=== PATIENT | male | born 1955 | race Caucasian/White ===

== ENCOUNTER → 2018-03-26 | Outpatient (CLI) | payer OTHER ==
[~2018-03-26] VITALS: Ht 182.9 cm; Wt 119.3 kg
[~2018-03-26] MED LIST: ALLERGY RELIEF180 MG PO; ALLOPURINOL 30300 M1 PO; CALCITRIOL0.25 MCG PO; CARDURA8 MG PO; CARVEDILOL25 MG PO; COLACE 100 MG100 MG PO; CRESTOR20 MG PO; GABAPENTIN 100100 MG PO; HYDRALAZINE HC100 MG PO; LASIX 40 MG TAB40 M2 PO; MIRALAX17 G1 PO; NEORAL25 MG PO; NORCO 5-325 TA1 EACH PO; PERCOCET 10-321 EACH PO; PREDNISONE 5 MG5 M1 PO; PROTONIX40 M1 PO; RESTORIL30 MG PO; SENNA8.6 MG PO; VENLAFAXINE HCL75 M1 PO; XANAX 0.25 MG0.25 MG PO
--- NOTE | ~2018-03-26 | HPC ---
[facility] [place] [address] PAIN MANAGEMENT CONSULTATION Name: STEVE LOVE Room #: REG [facility].#: [id number] Admission: 03/26/18 Attend Phys: Colt Chery DO Discharge: Date of : 53 Report #: [id number] THIS REPORT FOR: //name// CC: BE Chery DATE OF SERVICE: 03/26/2018 REFERRING PHYSICIAN: Dr. Gerry Francis. CHIEF COMPLAINT: Chronic low back pain. HISTORY OF PRESENT ILLNESS: As you know, the patient is a morbidly obese 62-year-old male who has longstanding history of low back pain began in 1994. He denies specific injury or trauma that may have led to symptom development. He has been precluded from taking nonsteroidal anti-inflammatories secondary to his chronic kidney disease for which he was following his hematology supervisor, Dr. Robb Millard. Apparently, Dr. Robb Millard was providing not only treatment for the patient's nephrology issues, but also from his internal med issues and he was started on opioid medications through Dr. Millard's office at 10 mg Percocet 4 times a day. The patient states he has been on this medication for a very long period of time. He sought evaluation and treatment with physical therapy and acupuncture, but these have not been very effective at treating his symptoms and provided only transient improvement, but Dr. Millard continued the patient on oxycodone 10/325 for a total of almost 15 years. The patient indicates that his physician, Dr. Millard has retired from active practice and has referred the patient off to Dr. Cunningham for internal medicine treatment. The patient was seen by Dr. Cunningham and advised he needed to seek evaluation through pain management clinic to confirm appropriate use of medications and to confirm that the dosing was an appropriate dosing for an individual with chronic axial back pain. The patient comes today per Dr. Cunningham's request to determine if his medication treatments are appropriate. He indicates today pain is constant, describes the pain as sharp and stabbing, places current pain score 10/10, daily average at 10/10, worst pain has been is 10/10. This is despite the fact the patient is taking a fairly excessive doses of opioid medication. He states the pain is exacerbated with lifting, bending, improves with sitting down and relaxation. He has been referred to discuss the appropriateness of opioid medication treatment. PAST MEDICAL HISTORY: 1. Hypertension. 2. Cardiovascular disease requiring cardiac transplant. 3. Chronic kidney disease. 4. [place] [address] PAIN MANAGEMENT CONSULTATION Name: STEVE LOVE Room #: REG CLI [facility]#: [id number] Admission: 03/26/18 Attend Phys: Colt Chery DO Discharge: Date of : 53 Report #: [id number] 5. Chronic low back pain. 6. Gout. PAST SURGICAL HISTORY: 1. Cholecystectomy. 2. Cardiac transplant. 3. Colon resection. 4. Right nephrectomy. 5. Possible left kidney cancer. SOCIAL HISTORY: The patient is a nonsmoker. He denies IV or illicit drug use. Denies any chronic alcohol use. 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 He is receiving disability income. He is not in litigation in regards to pain. He is unaccompanied today. REVIEW OF SYSTEMS: Positive for weight gain, fatigue and weakness, wearing corrective eyewear, hearing loss with tinnitus, significant heart trouble, requiring cardiac transplant, loss of appetite, frequent diarrhea, nocturia, kidney stones, sexual difficulty, lightheadedness and dizziness, rash and itching, weakness, depression, insomnia, heat and cold intolerance, bleeding and bruising tendencies, anemia, chronic kidney disease, dyslipidemia. All other review of systems negative per 12-point review of systems other than those listed in history of present illness. PAIN IMPACT SCORE: 39/70 indicating moderate interference of daily activities secondary to pain. ALLERGIES: NORVASC. CURRENT MEDICATIONS: Alprazolam 0.25 mg 3 times a day, venlafaxine 75 mg twice a day, temazepam 30 mg p.o. at bedtime, Senokot 1 tab per day, lovastatin 20 mg per day, pantoprazole 40 mg per day, prednisone 5 mg per day, MiraLax 17 grams per day, Percocet 10/325 four times a day, cyclosporine 25 mg twice a day, furosemide 40 mg once a day, hydralazine 100 mg 3 times a day, gabapentin 100 mg 3 times a day, fexofenadine 180 mg once a day, Cardura 8 mg once a day, Colace 100 mg once a day, carvedilol 25 mg twice a day, calcitriol 0.25 mcg 3 times a day, and allopurinol 300 mg once a day. IMAGING: No new imaging available. PQRS: The patient has known osteoarthritis. No rheumatoid arthritis. Pain intensity 10/10. Fall risk is none. He has not had a fall in the last 3 months. He is not on blood thinners. He is treated for hypertension. He is on opioids and has been for greater than 6 weeks. His risk assessment is low. Functional assessment 39/70, moderate interference. [facility] [address] [place] [address] PAIN MANAGEMENT CONSULTATION Name: STEVE LOVE Room #: REG [facility]#: [id number] Admission: 03/26/18 Attend Phys: Colt Chery DO Discharge: Date of : 53 Report #: [id number] PHYSICAL EXAMINATION: VITAL SIGNS: Blood pressure 129/86, pulse 75, respiratory rate 18 and unlabored, the patient is 100% on room air, height 6 feet tall, weight 263 pounds, and BMI calculated 35.7. GENERAL: Well-developed, well-nourished, well-hydrated, exogenously obese 62-year-old male, appears stated age, placing current pain score 10/10. HEENT: Normocephalic, atraumatic. Pupils are equal, round, and reactive to light. Extraocular muscles are intact. Sclerae are nonicteric without injection. NEUROLOGIC: Cranial nerves 2-12 are grossly intact. The patient deemed a good historian. LUNGS: Clear, no wheeze, rhonchi or rales. CARDIOVASCULAR: Regular. No appreciable gallop, no rub. Well-healed surgical scar is noted over the anterior chest. There is lower extremity edema noted, 2+ and pitting. ABDOMEN: Soft, obese, nontender. MUSCULOSKELETAL: Palpatory tenderness over the paraspinal musculature of lower lumbar spine, no spinous process tenderness. Seated straight leg raising negative. Supine straight leg raising is negative. Alejandro's test negative. Modified Gaenslen's positive for axial low back pain. Ankle clonus negative. Babinski is negative. He appears to be intact to light touch from L1 through S2 dermatomes. No focal deficits. Lumbar provocation testing including extension, rotation, and lateral flexion all intensify axial back pain, no radiation of symptoms. ASSESSMENT: 1. Lumbosacral spondylosis without radiculopathy. 2. Obesity contributing to #1. 3. Facet arthropathy of the lower lumbar spine. 4. Opioid dependency. 5. Chronic intractable pain. PLAN: 1. The patient has been referred to our service to discuss options for treatment and determine if the use of Percocet 10/325 four times a day is an appropriate treatment. At present, I do not have enough information in regards to this patient's issues to be able to determine this dosing of medication. This medication was started by another physician and has been continued for over 15 years of time. I do not have any imaging to confirm whether or not the patient actually needs to be on this medication. I would recommend a workup in this patient's case prior to providing a full assessment of the patient's needs and possible treatment options. The patient and I discussed that treatment options in generalities today, which would include the following. 2. We discussed physical therapy, stretching exercise, core strengthening and a concerted effort at weight loss. This will be that the cornerstone of treatment. The patient will need to participate actively in exercise programs [address] [address] PAIN MANAGEMENT CONSULTATION Name: STEVE LOVE Room #: REG [facility]#: [id number] Admission: 03/26/18 Attend Phys: Colt Chery DO Discharge: Date of : 53 Report #: [id number] and diet programs as part of his pain management routine. We discussed the possibility of adjusting medications to lower doses to comply with CDC's guidelines, though at this point, I would recommend he remain at the dosing he is currently at until workup is complete. We discussed interventional treatment such as intra-articular facet injections, medial branch nerve blocks, radiofrequency lesioning. We discussed the possibility of surgical options as well. After this long discussion of potential treatment options, we chose to begin with imaging and we have indicated we would provide his opioid medication for a short period of time as we determine treatment options once this is completed and we have stabilized on dose, we will be returning his care to his PCP for continuation of appropriate therapy. The patient states he is understanding and is amenable to the plan. 3. The patient will be sent for x-ray imaging of the lumbar spine. I have sent him for AP and lateral imaging. The patient will undergo this imaging today. We will review the findings once they are available. Based on the findings, we will discuss further treatment options. 4. I have provided the patient with a 1 month prescription of oxycodone 10 mg 4 times a day. He is not to take more than 4 tablets in given 24-hour period. There will be no early refills, no misuse of his medication, any lost or stolen prescriptions will require the patient to seek police reports before replacements would be offered. We discussed this with the patient today. We will place the patient under opioid contract with [facility] while we continue his workup, once we have determined the appropriate medications and stabilized on dose, we will then release him from his opioid contract to return to the referring physician for continuation of therapy. 5. We will see the patient back in followup visit in approximately 2 weeks. At that time, we will have x-ray imaging available. We will discuss the efficacy of the medications and discuss the appropriate treatment options that may not involve long-term opioid therapy. We will see him back in 2 weeks to discuss this further. 6. We wish to thank the referring team for the opportunity to see this patient in consultation. We will keep you apprised of the options for treatment we deem appropriate and medications treatments that may be more effective for treatment. We are somewhat limited in what medications he can take due to his chronic kidney disease and his cardiac issues, we will adjust medications appropriately. Once stable, we will be returning his care to your capable hands for fulfillment of the treatment options. Again, we wish to thank you for the opportunity to see the patient in consultation. <ELECTRONICALLY SIGNED> By: Colt Chery DO 04/02/18 0811 [id number] [id number] Colt Chery DO /nt
[2018-03-26 13:34] VITALS: BP 129/86
== END ==
LOC: PAIN 06:20
DX: M47.817 Spondylosis without myelopathy or radiculopathy, lumbosacral region (principal); M48.061 Spinal stenosis, lumbar region without neurogenic claudication; M12.88 Other specific arthropathies, not elsewhere classified, other specified site; G89.4 Chronic pain syndrome; E66.9 Obesity, unspecified; F11.20 Opioid dependence, uncomplicated

== ENCOUNTER → 2018-04-23 | Outpatient (CLI) | payer OTHER ==
[~2018-04-23] VITALS: Ht 182.9 cm; Wt 121.9 kg
--- NOTE | ~2018-04-23 | HPC ---
[facility] [place] [address] PAIN MANAGEMENT CONSULTATION Name: STEVE LOVE Room #: [facility] [id number] Admission: 04/23/18 Attend Phys: Colt Chery DO Discharge: Date of : 53 Report #: [id number] THIS REPORT FOR: //name// CC: BE Francis Physician staff DATE OF SERVICE: 04/23/2018 CHIEF COMPLAINT: Chronic low back pain. HISTORY OF PRESENT ILLNESS: As you know, the patient is a morbidly obese 62-year-old male with longstanding history of low back pain began in 1994. He denies injury or trauma that led to symptom development. The patient has been precluded from taking nonsteroidal anti-inflammatories secondary to chronic kidney disease for which he follows with Nephrology. The patient returns today in followup visit where we have continued his oxycodone 10/325 providing no more than 4 tabs a day. He indicates pain intensity of 5-6/10 with medications. He reports no side effects to the therapy. He is aware that we are only providing temporary medication management, but have begun a workup of his low back pain to determine the potential sources as we typically provide interventional treatments as are mainstay of treatment option. He returns to discuss the findings of the x-ray imaging I obtained at last visit and also to obtain refill of medication at the 4 a day dosing of oxycodone. ALLERGIES: NORVASC. CURRENT MEDICATIONS: Alprazolam, venlafaxine, temazepam, Senokot, lovastatin, pantoprazole, prednisone, MiraLax, Percocet, cyclosporine, furosemide, hydralazine, gabapentin, fexofenadine, Cardura, Colace, carvedilol, calcitriol and allopurinol. SOCIAL HISTORY: The patient states he is a nonsmoker. Denies IV or illicit drug use. Denies any chronic alcohol use. 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 He is unaccompanied today. IMAGING: X-ray lumbar of spine obtained on 03/26/2018 shows five lumbar vertebrae, moderate loss of disk height at L5-S1, partial sacralization of L5. Mild loss of disk space at L4-L5. Remaining disk spaces are normal. PHYSICAL EXAMINATION: VITAL SIGNS: Blood pressure 143/93, pulse 74, respiratory rate 20 and unlabored. The patient is 97% on room air. Height 6 feet tall, weight 268.8 pounds and BMI calculated 36.4[place] [address] PAIN MANAGEMENT CONSULTATION Name: STEVE LOVE [facility] [id number] Admission: 04/23/18 Attend Phys: Colt Chery DO Discharge: Date of : 53 Report #: [id number] GENERAL: Well-developed, well-nourished, well-hydrated, morbidly obese 62-year-old male who appears older than stated age. He is placing pain score today at 5-6/10. HEENT: Normocephalic and atraumatic. Pupils are equal, round and reactive to light. Extraocular muscles are intact. EXTREMITIES: Show no clubbing, no cyanosis and no edema. MUSCULOSKELETAL: The patient does have some palpatory tenderness over the paraspinal musculature of the lower lumbar spine. No spinous process tenderness. Seated straight leg raising is negative. Supine straight leg raising is negative. Alejandro's test is negative. There is some positive pain provocation with extension, lateral flexion and rotation of the lumbar spine. ASSESSMENT: 1. Lumbosacral spondylosis without myelopathy. 2. Morbid obesity contributing to #1. 3. Facet arthropathy of the lumbar spine. 4. Opioid dependency. 5. Chronic intractable pain. PLAN: 1. The patient returns today in followup visit where we have had a discussion about the findings of the x-ray imaging, I am pleased to advise the patient at this time findings on his x-ray appear fairly normal for his age and body habitus. There is only moderate loss of height at the L5-S1 level from a disk space and mild changes at the 4-5 level, which would indicate that the patient will not necessarily need opioid therapy long-term. We have discussed this with the patient and I believe interventional treatments along with concerted effort at weight loss and physical therapy would be the most appropriate treatment options. I have advised the patient of such today. Opioid medications will be slowly weaned over the next couple of months coming off opioids entirely as I do not feel they are appropriate given his lack of major pathology in the lumbar spine. I am pleasantly surprised by the findings and advised the patient of such today. 2. The patient and I discussed continuation of opioid medications at current dosing for the next month. This will allow the time for the patient to begin a concerted effort at weight loss. He has been slowly losing weight and we advised him to monitor his basic metabolic rate and maintain a caloric intake 200-300 calories below the BMR. I showed the patient a website where he can calculate his basic metabolic rate without difficulty. He will remain at a level 200-300 calories below this, which will provide a reduction in caloric intake leading to weight loss. 3. The patient and I discussed the possibility of interventional treatments. We are discussing intra-articular facet injections, medial branch nerve blocks and radiofrequency lesioning. These will be the cornerstone of treatment as the patient cannot undergo treatment with nonsteroidal anti-inflammatories, the gold standard medication for facet arthropathy pain for which the patient is [facility] [address] [place] [address] PAIN MANAGEMENT CONSULTATION Name: STEVE LOVE [facility] [id number] Admission: 04/23/18 Attend Phys: Colt Chery DO Discharge: Date of : 53 Report #: [id number] experiencing. Chronic opioid therapy was started by a head batcher with good intentions, but with typical outcome of escalating doses with less efficacy. This is noted again with the patient's pain score rated at 5-6/10 despite the fact that he is on 40 mg of oxycodone a day. I would recommend that we discontinue this activity as quickly as possible and adjust treatment for more appropriate and predictable outcome. 4. The patient returns in 1 month. We will begin weaning his opioids at that time. Certainly, if he wishes to remain on opioids he can seek another pain clinic or return to his PCP for this therapy. We are suggesting a more appropriate and predictable treatment course. 5. The patient was provided prescription of oxycodone 10 mg dose 1 tab p.o. q.i.d., #120, releases of today. We will see him back in 1 month for adjustments for lower dosing. At that time, we will also discuss the interventional treatments suggested above. <ELECTRONICALLY SIGNED> By: Colt Chery DO 04/24/18 0804 [id number] Colt Chery DO /nt
[2018-04-23 12:36] VITALS: BP 143/93
== END ==
LOC: PAIN 06:38
DX: M47.817 Spondylosis without myelopathy or radiculopathy, lumbosacral region (principal); M12.88 Other specific arthropathies, not elsewhere classified, other specified site; G89.4 Chronic pain syndrome; E66.01 Morbid (severe) obesity due to excess calories; F11.20 Opioid dependence, uncomplicated

== ENCOUNTER → 2018-05-21 | Outpatient (CLI) | payer OTHER ==
[~2018-05-21] VITALS: Ht 182.9 cm; Wt 121.6 kg
[~2018-05-21] MED LIST changes: +DOXAZOSIN MESYLA8 MG PO; +LISINOPRIL10 MG PO; +POTASSIUM CITR10 ME1 PO
--- NOTE | ~2018-05-21 | HPC ---
[facility] [place] [address] PAIN MANAGEMENT CONSULTATION Name: STEVE LOVE Room #: REG [facility].#: [id number] Admission: 05/21/18 Attend Phys: Colt Chery DO Discharge: Date of : 53 Report #: [id number] THIS REPORT FOR: //name// CC: BE Francis Physician staff DATE OF SERVICE: 05/21/2018 CHIEF COMPLAINT: Chronic low back pain. HISTORY OF PRESENT ILLNESS: As you know, the patient is a morbidly obese 62-year-old male who has a longstanding history of low back pain, began in 1994. The patient denies injury or trauma that may have led to symptom development. 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 He was referred to our clinic to determine appropriate medication therapies. We have stabilized the patient on a medication in the form of Percocet 10/325, no more than 4 a day. This has been working well for pain control. We have completed the stabilization of the patient on his medication. The patient indicates pain today at level of 8/10; despite this elevated pain score, he is providing 50-60% improvement reporting when discussing his ongoing pain medication. He returns today for refill of medications. ALLERGIES: NORVASC. CURRENT MEDICATIONS: Alprazolam, venlafaxine, temazepam, Senokot, lovastatin, pantoprazole, prednisone, MiraLax, Percocet, cyclobenzaprine, furosemide, hydralazine, gabapentin, fexofenadine, Cardura, Colace, carvedilol, cholecalciferol, calcitriol and allopurinol. SOCIAL HISTORY: The patient is a nonsmoker. Denies IV or illicit drug use. Denies any chronic alcohol use. 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 He is unaccompanied today. IMAGING: There is no new imaging available. PHYSICAL EXAMINATION: VITAL SIGNS: Blood pressure 121/88, pulse 78, respiratory rate 16, unlabored. The patient is 98% on room air, height 6 feet tall, weight 268 pounds, BMI calculated 36.3. GENERAL: Well-developed, well-nourished, well-hydrated, morbidly obese 62-year-old male who appears older than stated age, placing current pain score at 8/10. HEENT: Normocephalic, atraumatic. Pupils equal, round, reactive to light. [facility] [address] [place] [address] PAIN MANAGEMENT CONSULTATION Name: STEVE LOVE Room #: REG [facility]#: [id number] Admission: 05/21/18 Attend Phys: Colt Chery DO Discharge: Date of : 53 Report #: [id number] Extraocular muscles are intact. EXTREMITIES: Show no clubbing, no cyanosis, no edema. MUSCULOSKELETAL: There is palpatory tenderness noted over the paraspinal musculature of lower lumbar spine. No spinous process tenderness. Seated straight leg raising negative. Supine straight leg raising negative. HARMAN test is negative. Modified Gaenslen's positive for axial back pain. Ankle clonus negative. Babinski is negative. ASSESSMENT: 1. Lumbosacral spondylosis without myelopathy. 2. Morbid obesity contributing to #1. 3. Facet arthropathy of the lumbar spine. 4. Opioid dependency. 5. Chronic intractable pain. PLAN: 1. The patient has returned today in followup visit where we have discussed at length the treatment options available for axial back pain due to facet arthropathy. We have suggested to the patient options that do not require continuation of opioid medications. We have discussed intra-articular facet injections, medial branch nerve blocks, radiofrequency lesioning and treatment options for the lumbar spine. At present, the patient feels medications are working well. The patient has been on these medications for a very long period of time and I am confident that these medications have little or no benefit given the longevity the patient has been on the therapy. 2. I have provided the patient with a prescription of Percocet 10/325, no more than 4 a day; I have given him #120. He is to take the medication as directed. No increase in therapy. Prescription was provided for 1 month only. 3. We will see the patient back in followup visit in 1 month. At that time, if he is stabilized on his medication, we can see him every 2 months as you will be provided a medication total of 60 morphine equivalents per day, which is at the higher end of the scale of appropriate medications for chronic pain. We will ultimately need to adjust these to a lower dose but given his 60 milligram morphine equivalency, he will have to be seen on a monthly or every other month basis to continue this therapy with our clinic. He can certainly return to his PCP to continue the therapy as he is stabilized on those and he is not having any issues with this treatment. By: [id number] Colt Chery DO /nt
[2018-05-21 10:20] VITALS: BP 121/88
== END ==
LOC: PAIN 06:38
DX: M47.817 Spondylosis without myelopathy or radiculopathy, lumbosacral region (principal); G89.4 Chronic pain syndrome; M12.88 Other specific arthropathies, not elsewhere classified, other specified site; E66.01 Morbid (severe) obesity due to excess calories; F11.20 Opioid dependence, uncomplicated

== ENCOUNTER → 2018-08-21 | Outpatient (CLI) | payer OTHER ==
[~2018-08-21] VITALS: Ht 182.9 cm; Wt 120.9 kg
[~2018-08-21] MED LIST changes: +IMDUR 30 MG TAB30 M1 PO
--- NOTE | ~2018-08-21 | HPC ---
[facility] [address] [place] [address] PAIN MANAGEMENT CONSULTATION Name: STEVE LOVE [facility] [id number] Admission: 08/21/18 Attend Phys: Colt Chery DO Discharge: Date of : 53 Report #: [id number] THIS REPORT FOR: //name// CC: BE Chery Physician staff DATE OF SERVICE: 08/21/2018 CHIEF COMPLAINT: Chronic low back pain. HISTORY OF PRESENT ILLNESS: As you know, the patient is a morbidly obese 63-year-old male with longstanding history of low back pain, which began in 1987. He denies injury or trauma that may have led to symptom development. He is a long-term opioid medication management patient who was initiated on this therapy by his cooler tender, Dr. Robb Milladr years ago and has continued to use this medication. He was subsequently referred to our service as the patient's cooler tender retired and the patient's primary care physician was unwilling to continue opioid medication management for chronic axial back pain. The patient states he was doing well with medication, was having no side effects and was able to participate in his daily activities without significant pain interference. We continued the patient on his dosing with the caveat that ultimately we will be weaning off these medications given the new political environment in regards to opioid therapy. He returns today in followup visit requesting refill on medications. He is denying side effects. He states he has been quite busy of late as his son is soon to be and there is a significant amount of planning and organization taking place at the patient's home. He states the stress has increased his pain, but he feels he is doing well with medication management at this time. He returns for refill of therapy. ALLERGIES: NORVASC. CURRENT MEDICATIONS: Alprazolam, venlafaxine, temazepam, Senokot, lovastatin, pantoprazole, prednisone, MiraLax, Percocet, cyclobenzaprine, furosemide, hydralazine, gabapentin, fexofenadine, Cardura, Colace, carvedilol, cholecalciferol, calcitriol, and allopurinol. SOCIAL HISTORY: The patient is a nonsmoker. Denies IV or illicit drug use. Denies any chronic alcohol use. 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 He is unaccompanied today. IMAGING: There is no new imaging available. PHYSICAL EXAMINATION: VITAL SIGNS: Blood pressure 153/99, pulse is 66, respiratory rate 20 and [facility] [address] [place] [address] PAIN MANAGEMENT CONSULTATION Name: STEVE LOVE Room #: REG [facility]#: [id number] Admission: 08/21/18 Attend Phys: Colt Chery DO Discharge: Date of : 53 Report #: [id number] unlabored. The patient is 98% on room air, height 6 feet tall, weight 266 pounds, BMI calculated at 36.1. GENERAL: Well-developed, well-nourished, well-hydrated exogenously obese 63-year-old male appearing stated age. He is placing pain score around 8/10. HEENT: Normocephalic, atraumatic. Pupils equal, round, reactive to light. Extraocular muscles are intact. EXTREMITIES: Show no clubbing, no cyanosis, no edema. MUSCULOSKELETAL: The patient has a palpatory tenderness over the paraspinal musculature of lower lumbar spine, no spinous process tenderness. Seated straight leg raising negative. Supine straight leg raising negative. Alejandro's test negative. Modified Gaenslen's positive for axial low back pain. Muscle bulk and tone of the musculature of the lower extremities is symmetrical, deconditioning noted. ASSESSMENT: 1. Lumbosacral spondylosis without radiculopathy. 2. Morbid obesity. 3. Facet arthropathy of the lumbar spine. 4. Opioid dependency. 5. Complicated medication therapy. 6. Chronic intractable pain. PLAN: 1. The patient returns today in followup visit. We had a very long discussion today about the use of medication management for long-term back pain issues. I have advised the patient that opioid medications soon will be discontinued. Recent information indicates that opiate coverage will only be offered by third green party payers and ultimately by Medicare for those individual suffering from terminal disease, metastatic cancer, acute sickle cell anemia pain and post-surgical pain for only 7-10 days. Otherwise, opioid medications will ultimately be discontinued. The patient will need to be prepared for changes in his opioid therapy as the guidelines begin to change. It is projected that opioid medication management will be discontinued in approximately mid 2020 based on current projections. The patient and I had a very long discussion about this today. He states he understands. He is concerned about how he will handle his pain from that point forward. We discussed the following. 2. I have discussed with the patient his need to begin losing weight and beginning strengthening and core exercise program. This will be the way to treat his ongoing axial back pain as his symptoms are related to facet arthropathy and not to any specific neuropathic component such as lumbar disk herniation or central canal stenosis. The patient is overweight and needs to begin a much more healthy lifestyle to address not only his back pain issues, but some of his concomitant illnesses. The patient has capabilities to begin the exercise program, he just has not been willing to participate. This would be a way to treat his symptoms. Other options could include possible surgical [facility] [address] [place] [address] PAIN MANAGEMENT CONSULTATION Name: STEVE LOVE Room #: REG [facility].#: [id number] Admission: 08/21/18 Attend Phys: Colt Chery DO Discharge: Date of : 53 Report #: [id number] options to stabilize the back, decreasing mobility across the area though this would be an aggressive procedure and may leave the patient with decreased mobility. Other options would include possibility of radiofrequency lesioning of the lumbar spine. Anti-inflammatory medications, the goal standard for treatment would not be recommended in this patient given his chronic kidney disease and his heart transplant leading to risk on both levels. The patient will consider these options. 3. We have reviewed the patient's recent drug screen. It shows positive for appropriate medications. There is no aberrancy noted on the drug screen. We have also taken the liberty of reviewing drug monitoring program such as K-TRACS and MO-TRACS. There are no apparent entries in these tracking programs. 4. The patient was provided a prescription of Percocet 10/325 one tab p.o. q. 6 hours p.r.n. for pain, I have given the patient #120, this equates to 60 morphine equivalents a day, requiring the patient to be seen every other month. He was given a prescription of 120 today and release in 4 weeks, 2 months' worth of medication. The patient was advised to utilize the medication only as necessary. He is not to rely on the medication prophylactically. 5. We reviewed the fact that opiate medications are being used to provide analgesia adequate to support activities of daily living, not attempting to achieve a specific pain score on the 0-10 Visual Analog Scale. The current opiate medications are providing sufficient analgesia to allow the patient to participate in activities of daily living. The patient is not exhibiting any aberrant behavior suggestive of drug diversion. The patient is not having any adverse reactions to medications. The patient is not suffering from daytime somnolence or mental acuity changes. The patient is managing opiate-induced constipation with appropriate lwpo-fex-vpkfxlm agents and dietary considerations. The patient was counseled on concern for caution with operating a motor vehicle while using opiate medications. A physical exam was performed and the patient's functional status was evaluated. All patients with back pain were advised against the bed rest greater than 4 days and were advised to return to normal activities. Pain score assessment was noted and the treatment plan was reviewed with the patient. All current medications, both prescribed and OTC were reviewed and reconciled on the electronic medical record. Tobacco screening was accomplished and smoking cessation was advised when indicated. BMI was noted and diet/exercise modification was recommended for all patients following outside normal parameters. I reviewed with the patient today their responsibilities to safeguard prescription medications, reviewed their responsibility to utilize medications only as prescribed by the physician. They are to seek and receive pain medications only from 1 physician group ( [facility]). They are to use [address] [address] PAIN MANAGEMENT CONSULTATION Name: STEVE LOVE Room #: REG [facility]#: [id number] Admission: 08/21/18 Attend Phys: Colt Chery DO Discharge: Date of : 53 Report #: [id number] pharmacy and keep the clinic informed if they change pharmacies. Their responsibilities include making followup visits in a timely fashion and to avoid abrupt discontinuation of medication usage. Their responsibilities further include bringing their medications (bottles from the pharmacy with residual pills) to the visit for possible confirmation of pill counts and the patient understands it is their responsibility to submit to random drug screens to ensure both that the medications prescribed are present, and that no other controlled substances are present. All prescriptions provided today were generated electronically. 6. The patient will return to our clinic in 2 months for medication therapy and discuss alternative treatment options if at all possible. <ELECTRONICALLY SIGNED> By: Colt Chery DO 08/27/18 0727 [id number] Colt Chery DO /nt
[2018-08-21 10:41] VITALS: BP 153/99
== END ==
LOC: PAIN 06:54
DX: M47.897 Other spondylosis, lumbosacral region (principal); E66.01 Morbid (severe) obesity due to excess calories; F11.20 Opioid dependence, uncomplicated; G89.4 Chronic pain syndrome; M12.88 Other specific arthropathies, not elsewhere classified, other specified site; Z79.899 Other long term (current) drug therapy

== ENCOUNTER → 2018-10-23 | Outpatient (CLI) | payer OTHER ==
[~2018-10-23] VITALS: Ht 182.9 cm; Wt 121.7 kg
--- NOTE | ~2018-10-23 | HPC ---
[facility] [place] [address] PAIN MANAGEMENT CONSULTATION Name: STEVE LOVE Room #: REG [facility].#: [id number] Admission: 10/23/18 Attend Phys: Colt Chery DO Discharge: Date of : 53 Report #: [id number] THIS REPORT FOR: //name// CC: BE Chery Physician staff DATE OF SERVICE: 10/23/2018 CHIEF COMPLAINT: Chronic low back pain. HISTORY OF PRESENT ILLNESS: As you know, the patient is a 63-year-old morbidly obese male with longstanding history of chronic low back pain began in 1994. He denies specific injury or trauma that may have led to symptom development. 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 He was subsequently referred to our clinic to take over opioid medication management for the short term until which time we can transition to other medication therapies. He returns today in followup visit for refill of current medications. ALLERGIES: NORVASC. CURRENT MEDICATIONS: Alprazolam, venlafaxine, temazepam, Senokot, lovastatin, pantoprazole, prednisone, MiraLax, Percocet, cyclobenzaprine, furosemide, hydralazine, gabapentin, fexofenadine, Cardura, Colace, carvedilol, cholecalciferol, calcitriol and allopurinol. SOCIAL HISTORY: The patient is a nonsmoker. Denies IV or illicit drug use. Denies any chronic alcohol use. 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 He is retired. He is unaccompanied today. IMAGING DATA: No new imaging available. PHYSICAL EXAMINATION: VITAL SIGNS: Blood pressure 130/87, pulse 79 and respiratory rate 18 and unlabored. The patient is 96% on room air, height 6 feet tall, weight 268.2 pounds and BMI calculated 36.4. GENERAL: Well-developed, well-nourished and well-hydrated 63-year-old male appearing stated age, placing current pain score 5/10. HEENT: Normocephalic and atraumatic. Pupils equal, round and reactive to light. Extraocular muscles are intact. EXTREMITIES: Show no clubbing, no cyanosis and no edema. MUSCULOSKELETAL: The patient has palpatory tenderness again noted over the paraspinal musculature, lower lumbar spine and no spinous process tenderness. Seated straight leg raising negative. Supine straight leg raising negative. Alejandro's test negative. Modified Gaenslen's positive for some axial low back [address] [address] PAIN MANAGEMENT CONSULTATION Name: STEVE LOVE Room #: REG [facility]#: [id number] Admission: 10/23/18 Attend Phys: Colt Chery DO Discharge: Date of : 53 Report #: [id number] pain. Muscle bulk and tone symmetrical in comparing left lower extremity to right. Deconditioning noted, slight forward flexion of the lumbar spine in stance. ASSESSMENT: 1. Lumbosacral spondylosis without radiculopathy. 2. Morbid obesity. 3. Facet arthropathy of the lumbar spine. 4. Opioid dependency. 5. Complicated medication management. 6. Chronic intractable pain. PLAN: 1. The patient returns today in followup visit for continuation of medication therapy. He feels medications are working beneficially for pain control. He denies any side effects to the Percocet therapy including sleepiness, disorientation, mental slowing. He requests refill of the medications be provided today for the next 3 months. 2. We reviewed the fact that opiate medications are being used to provide analgesia adequate to support activities of daily living, not attempting to achieve a specific pain score on the 0-10 Visual Analog Scale. The current opiate medications are providing sufficient analgesia to allow the patient to participate in activities of daily living. The patient is not exhibiting any aberrant behavior suggestive of drug diversion. The patient is not having any adverse reactions to medications. The patient is not suffering from daytime somnolence or mental acuity changes. The patient is managing opiate-induced constipation with appropriate zwzt-jct-ofraqgn agents and dietary considerations. The patient was counseled on concern for caution with operating a motor vehicle while using opiate medications. A physical exam was performed and the patient's functional status was evaluated. All patients with back pain were advised against the bed rest greater than 4 days and were advised to return to normal activities. Pain score assessment was noted and the treatment plan was reviewed with the patient. All current medications, both prescribed and OTC were reviewed and reconciled on the electronic medical record. Tobacco screening was accomplished and smoking cessation was advised when indicated. BMI was noted and diet/exercise modification was recommended for all patients following outside normal parameters. I reviewed with the patient today their responsibilities to safeguard prescription medications, reviewed their responsibility to utilize medications only as prescribed by the physician. They are to seek and receive pain medications only from 1 physician group ([facility]). They are to use 1 pharmacy and keep the clinic informed if they change pharmacies. Their responsibilities include making followup visits in a timely fashion and to avoid [address] [address] PAIN MANAGEMENT CONSULTATION Name: STEVE LOVE Room #: REG [facility]#: [id number] Admission: 10/23/18 Attend Phys: Colt Chery DO Discharge: Date of : 53 Report #: [id number] abrupt discontinuation of medication usage. Their responsibilities further include bringing their medications (bottles from the pharmacy with residual pills) to the visit for possible confirmation of pill counts and the patient understands it is their responsibility to submit to random drug screens to ensure both that the medications prescribed are present, and that no other controlled substances are present. All prescriptions provided today were generated electronically. 3. A prescription of Percocet was provided to the patient today, dosing as 10/325 one tab every 6 hours p.r.n. for pain. I have given the patient #120, releases of today and 4 weeks from today, 2 months' worth of medication. 4. The patient returns to our clinic in 2 months for medication therapy and discuss efficacy of continuing this treatment. By: [id number] Colt Chery DO /nt
[2018-10-23 10:42] VITALS: BP 130/87
== END ==
LOC: PAIN 09:34
DX: M54.5 Low back pain (principal); M06.9 Rheumatoid arthritis, unspecified

== ENCOUNTER → 2018-12-24 | Outpatient (CLI) | payer OTHER ==
[~2018-12-24] VITALS: Ht 182.9 cm; Wt 126.0 kg
[2018-12-24 10:31] VITALS: BP 139/101
--- NOTE | 2018-12-24 10:53 | NUR ---
Pain Clinic Assessment: 1. History of Osteoarthritis: Not Applicable History of Rheumatoid Arthritis: Not Applicable 2. Height: 6 ft. 0 in. 182.9 cm. Weight: 277.8 lb. oz. 126.010 kg. Patient's BMI: 37.7 3. Vital Signs: BP: 139/101 Pulse: 80 Resp: 20 Temp: 02 Sat: 98 ECG Mon: 4. Pain Intensity: 6 5. Fall Risk: Dizziness: Y Needs help standing or walking: N Fallen in the last 3 months: N Fall risk comments: 6. Patient on Blood Thinner: None 7. History of Hypertension: Y 8. Opioid Therapy greater than 6 weeks: Y Opiate Contract Signed: 03/26/18 9. Risk Assessment Tool Provided: 1-LOW RISK 10. Functional Assessment Tool: / 11. Recreational Drug Use: Never Drug Type: Tobacco Use: Never Smoker Tobacco Type: Amount or Packs/day: How Many Years: Alcohol Use: No Frequency: Quant:
--- NOTE | 2018-12-25 10:54 | HPC ---
[address] [address] PAIN MANAGEMENT CONSULTATION Name: STEVE LOVE Room #: REG [facility].#: [id number] Admission: 12/24/18 Attend Phys: Colt Chery DO Discharge: Date of : 53 Report #: [id number] THIS REPORT FOR: //name// CC: BE Chery Physician staff DATE OF SERVICE: 12/24/2018 CHIEF COMPLAINT: Chronic low back pain. HISTORY OF PRESENT ILLNESS: As you know, the patient is a morbidly obese 63-year-old male with longstanding history of chronic axial back pain began in 1994. The patient was being treated by his [employer] security with chronic opioids for facet arthropathy of the lumbar spine. The patient's [employer] ultimately discontinued practice and his Nephrology partners did not wish to continue his medications. He was subsequently referred to his PCP to continue the therapy. They in turn referred the patient on to our clinic as they did not feel comfortable writing opioid medications for this patient as well. He was seen in our clinic where we reviewed his entire medical history that he had available with him on 03/26/2018 and reinitiated his opioid therapy for baseline pain control for which he takes Percocet 10/325 four times a day. He is unable to utilize anti-inflammatory medications due to chronic kidney disease as well as cardiac issues related to his cardiac transplant. He was stabilized on this medication by another physician referred to our clinic to continue the therapy. We have agreed to provide the patient with pain medications at current dosing without further escalation. He returns today in followup visit requesting refill of medications. He is placing pain score today at 6/10. ALLERGIES: NORVASC. CURRENT MEDICATIONS: Alprazolam, venlafaxine, temazepam, Senokot, lovastatin, pantoprazole, prednisone, MiraLax, Percocet, cyclobenzaprine, furosemide, hydralazine, gabapentin, fexofenadine, Cardura, Colace, carvedilol, cholecalciferol, calcitriol and allopurinol. SOCIAL HISTORY: The patient is a nonsmoker. He denies IV or illicit drug use. Denies any chronic alcohol use. 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 He is no longer working, not receiving workmen's compensation. He is retired. IMAGING: No new imaging available. PHYSICAL EXAMINATION: VITAL SIGNS: Blood pressure 139/101, pulse 80, respiratory rate 20 and unlabored. The patient is 98% on room air, height 6 feet tall, weight 277.8 [place] [address] PAIN MANAGEMENT CONSULTATION Name: STEVE LOVE Room #: REG [facility].#: [id number] Admission: 12/24/18 Attend Phys: Colt Chery DO Discharge: Date of : 53 Report #: [id number] pounds, BMI calculated 37.7. GENERAL: Well-developed, well-nourished, well-hydrated 63-year-old male appearing stated age, placing current pain score at 6/10. HEENT: Normocephalic, atraumatic. Pupils equal, round, reactive to light. EXTREMITIES: Show no clubbing, no cyanosis, no edema. MUSCULOSKELETAL: There is some palpatory tenderness noted again over the paraspinal muscular area of the lumbar region. Spinous process negative for tenderness. Seated straight leg raising negative. Supine straight leg raising negative. HARMAN test negative. ASSESSMENT: 1. Lumbosacral spondylosis without radicular symptoms. 2. Morbid obesity. 3. Facet arthropathy of the lumbar spine. 4. Lumbar degeneration. 5. Complicated medication management. 6. Chronic intractable pain. PLAN: 1. The patient returns today in followup visit for continuation of medication therapy. He feels medications are working beneficially for pain control. He is denying any side effects to medication at this time, returning requesting refill on medications for the next 2 months. He indicates no side effects of somnolence, decreased mental acuity, disorientation, confusion, mental slowing or constipation with use of the medication. As indicated in our history of present illness, the patient has been on medications since 1994. He returns today in followup visit requesting refills. 2. We reviewed the fact that opiate medications are being used to provide analgesia adequate to support activities of daily living, not attempting to achieve a specific pain score on the 0-10 Visual Analog Scale. The current opiate medications are providing sufficient analgesia to allow the patient to participate in activities of daily living. The patient is not exhibiting any aberrant behavior suggestive of drug diversion. The patient is not having any adverse reactions to medications. The patient is not suffering from daytime somnolence or mental acuity changes. The patient is managing opiate-induced constipation with appropriate momr-vhy-dfmmaqb agents and dietary considerations. The patient was counseled on concern for caution with operating a motor vehicle while using opiate medications. A physical exam was performed and the patient's functional status was evaluated. All patients with back pain were advised against the bed rest greater than 4 days and were advised to return to normal activities. Pain score assessment was noted and the treatment plan was reviewed with the patient. All current medications, both prescribed and OTC were reviewed and reconciled on the electronic medical record. Tobacco screening was accomplished and smoking cessation was advised when indicated. BMI was noted and diet/exercise [address] [address] PAIN MANAGEMENT CONSULTATION Name: STEVE LOVE Room #: REG [facility].#: [id number] Admission: 12/24/18 Attend Phys: Colt Chery DO Discharge: Date of : 53 Report #: [id number] modification was recommended for all patients following outside normal parameters. I reviewed with the patient today their responsibilities to safeguard prescription medications, reviewed their responsibility to utilize medications only as prescribed by the physician. They are to seek and receive pain medications only from 1 physician group ( [facility]). They are to use 1 pharmacy and keep the clinic informed if they change pharmacies. Their responsibilities include making followup visits in a timely fashion and to avoid abrupt discontinuation of medication usage. Their responsibilities further include bringing their medications (bottles from the pharmacy with residual pills) to the visit for possible confirmation of pill counts and the patient understands it is their responsibility to submit to random drug screens to ensure both that the medications prescribed are present, and that no other controlled substances are present. All prescriptions provided today were generated electronically. 3. The patient was provided prescription of Percocet 10/325 one tab p.o. q.6 hours p.r.n. pain, I have given the patient #120, releases of today, 4 weeks from today, 2 months' worth of medication. 4. The patient to return to our clinic in 2 months. At that time, review the efficacy of medication provided, determine if continuation of this therapy recommended. <ELECTRONICALLY SIGNED> By: Colt Chery DO 12/25/18 1054 [id number] Colt Chery DO /nt
== END ==
LOC: PAIN 06:53
DX: M47.817 Spondylosis without myelopathy or radiculopathy, lumbosacral region (principal); M51.36 Other intervertebral disc degeneration, lumbar region; G89.4 Chronic pain syndrome; M12.88 Other specific arthropathies, not elsewhere classified, other specified site; E66.01 Morbid (severe) obesity due to excess calories; Z79.899 Other long term (current) drug therapy; Z68.37 Body mass index [BMI] 37.0-37.9, adult

== ENCOUNTER → 2019-02-18 | Outpatient (CLI) | payer OTHER ==
[~2019-02-18] VITALS: Ht 182.9 cm; Wt 127.6 kg
[~2019-02-18] MED LIST changes: +BUSPIRONE HCL10 MG PO
[2019-02-18 10:35] VITALS: BP 135/94
--- NOTE | 2019-02-18 10:47 | NUR ---
Pain Clinic Assessment: 1. History of Osteoarthritis: Not Applicable History of Rheumatoid Arthritis: Not Applicable 2. Height: 6 ft. 0 in. 182.9 cm. Weight: 281.2 lb. oz. 127.552 kg. Patient's BMI: 38.1 3. Vital Signs: BP: 135/94 Pulse: 80 Resp: 16 Temp: 02 Sat: 99 ECG Mon: 4. Pain Intensity: 6 5. Fall Risk: Dizziness: N Needs help standing or walking: N Fallen in the last 3 months: N Fall risk comments: 6. Patient on Blood Thinner: None 7. History of Hypertension: Y 8. Opioid Therapy greater than 6 weeks: Y Opiate Contract Signed: 03/26/18 9. Risk Assessment Tool Provided: 1-LOW RISK 10. Functional Assessment Tool: / 11. Recreational Drug Use: Never Drug Type: Tobacco Use: Never Smoker Tobacco Type: Amount or Packs/day: How Many Years: Alcohol Use: No Frequency: Quant:
--- NOTE | 2019-02-19 07:31 | HPC ---
[facility] [address] [place] [address] PAIN MANAGEMENT CONSULTATION Name: STEVE LOVE [facility] #: [facility] [id number] Admission: 02/18/19 ������������������ Attend Phys: Albertina Womack Discharge: ������������������ Date of : 53 Report #: [id number] THIS REPORT FOR: //name// CC: Albertina HARRINGTON Physician staff DATE OF SERVICE: 02/18/2019 CHIEF COMPLAINT: Chronic low back pain. HISTORY OF PRESENT ILLNESS: This is a very pleasant 63-year-old gentleman with a longstanding history of chronic axial back pain. He has been on his Percocet for quite some time now and here for a refill today. The patient tells me that his pain score today is 6/10, which is a normal average for him. He tells me as long as he takes his medicine throughout the day that his pain is managed. He tells me that it is worse with activity and lifting, better with his sitting, resting and medications. He tells me he does not take them on a set schedule throughout the day just when he feels like he needs them. He denies any constipation. He said his transplant medications keep him less constipated; therefore, he only uses MiraLax as needed. He does tell me today that since the last visit with doctor, he was concerned about taking his benzodiazepine, Xanax and did talk to his primary care doctor and he switched him to buspirone. The patient is going to start that as needed for his anxiety issues. ALLERGIES: NORVASC AND NONSTEROIDALS. MEDICATIONS: Buspirone 10 mg daily, oxycodone 10/325 up to 4 times a day, 30 mg daily, lisinopril 10 mg daily, potassium 10 mEq daily, venlafaxine 75 mg b.i.d., Crestor 20 mg daily, Protonix 40 mg daily, prednisone 5 mg daily, Neoral 25 mg capsules b.i.d., Lasix 40 mg daily, hydralazine 10 mg 3 times a day, Neurontin 200 mg 3 times a day, allergy medicine as needed, Cardura 8 mg at bedtime, Colace as needed, carvedilol 25 mg b.i.d., calcitriol Sunday, Sunday, Sunday and allopurinol 300 mg daily. PQRS: 1. He denies any history of osteoarthritis or rheumatoid arthritis. 2. Height is 6 feet, weight is 281. 3. BMI is 38. 4. Vital signs: Blood pressure 135/94, pulse is 80, respirations 18, oxygen sat is 99. 5. Pain score is 6/10. 6. Fall risk. Denies dizziness. Does not need help walking or standing. Has not fallen in the last 3 months. 7. He does not take any blood thinners and does have a history of hypertension. His opioid therapy is greater than 6 weeks; therefore, an opioid signed [address] [address] PAIN MANAGEMENT CONSULTATION Name: STEVE LOVE Room #: REG JUDY Cui#: [id number] Admission: 02/18/19 ������������������ Attend Phys: Albertina Womack Discharge: ������������������ Date of : 53 Report #: [id number] contract is on the chart. Risk assessment is low. His functional assessment is 55/70. 8. Recreational drug use: He denies. He is not a smoker and he does not drink alcohol. We did check the prescription monitoring system. The patient is filling appropriately for his medications. We will check a drug screen for this patient today to have one on the chart for once a year. The patient does tell me that he safeguards his medications. PHYSICAL EXAMINATION: GENERAL: This is a well-developed, well-nourished, well-hydrated 63-year-old gentleman who appears his stated age, slightly obese, placing his current pain score at 6/10 today. HEENT: Normocephalic, atraumatic. Pupils equal, round and reactive to light. EXTREMITIES: No clubbing, no cyanosis, no edema. MUSCULOSKELETAL: Complains of some tenderness across his lower lumbar region. The patient rises from sitting to standing without difficulty. He does use the armrest slightly. His walk is antalgic gait. ASSESSMENT: 1. Lumbosacral spondylosis without radicular symptoms. 2. Morbid obesity. 3. Facet arthroscopy of lumbar spine. 4. Lumbar degeneration. 5. Complex medical management under terms of written opioid agreement. 6. History of heart transplant. We reviewed the fact that opiate medications are being used to provide analgesia adequate to support activities of daily living, not attempting to achieve a specific pain score on the 0-10 Visual Analog Scale. The current opiate medications are providing sufficient analgesia to allow the patient to participate in activities of daily living. The patient is not exhibiting any aberrant behavior suggestive of drug diversion. The patient is not having any adverse reactions to medications. The patient is not suffering from daytime somnolence or mental acuity changes. The patient is managing opiate-induced constipation with appropriate [id number]-[id number] agents and dietary considerations. The patient was counseled on concern for caution with operating a motor vehicle while using opiate medications. A physical exam was performed and the patient's functional status was evaluated. All patients with back pain were advised against the bed rest greater than 4 days and were advised to return to normal activities. Pain score assessment was noted and the treatment plan was reviewed with the patient. All current medications, both prescribed and OTC were reviewed and reconciled on the electronic medical record. Tobacco screening was accomplished and smoking [facility] [address] [place] [address] PAIN MANAGEMENT CONSULTATION Name: STEVE LOVE Room #: REG [facility].#: [id number] Admission: 02/18/19 ������������������ Attend Phys: Albertina Womack Discharge: ������������������ Date of : 53 Report #: [id number] cessation was advised when indicated. BMI was noted and diet/exercise modification was recommended for all patients following outside normal parameters. I reviewed with the patient today their responsibilities to safeguard prescription medications, reviewed their responsibility to utilize medications only as prescribed by the physician. They are to seek and receive pain medications only from 1 physician group ( [facility]). They are to use 1 pharmacy and keep the clinic informed if they change pharmacies. Their responsibilities include making followup visits in a timely fashion and to avoid abrupt discontinuation of medication usage. Their responsibilities further include bringing their medications (bottles from the pharmacy with residual pills) to the visit for possible confirmation of pill counts and the patient understands it is their responsibility to submit to random drug screens to ensure both that the medications prescribed are present, and that no other controlled substances are present. All prescriptions provided today were generated electronically. PLAN: 1. We discussed treatment options with the patient today. The patient tells me that after discussing his medications in December with Dr. Colt Chery, he did discuss it with his primary care doctor and has no longer been taking his benzodiazepine, Xanax. He did switch him to buspirone, which the patient has brought with him today to ask us about taking. I explained the classifications of medications and told the patient that the CDC does not like people taking benzodiazepines and opioids that has a different classification and that would help with his anxiety disorder that he has and to go ahead and start taking that medication. The patient tells me that his plan is to take it on an as needed basis. 2. The patient is taking Percocet 10/325 up to 4 times a day. His current morphine milliequivalent per the CDC guidelines is at 60; therefore, we will see the patient every 2 months. He is understanding these guidelines. Scripts given today for #120 for release today and again in 4 weeks. 3. The patient provided us with a urine specimen for random drug screen today: 4. The patient is seen with Dr. Chery who also collaborated care. ��������������������������������������������� <ELECTRONICALLY SIGNED> ���������������������������������������� By: Albertina Womack ��������������������������������������������� 02/19/19 0731 1145 13 Albertina Womack /marjan
== END ==
LOC: PAIN 06:52
DX: M47.897 Other spondylosis, lumbosacral region (principal); E66.01 Morbid (severe) obesity due to excess calories; Z88.8 Allergy status to other drugs, medicaments and biological substances; Z79.899 Other long term (current) drug therapy; Z94.1 Heart transplant status

== ENCOUNTER → 2019-04-22 | Outpatient (CLI) | payer OTHER ==
[~2019-04-22] VITALS: Ht 182.9 cm; Wt 124.6 kg
[2019-04-22 09:57] VITALS: BP 146/100
--- NOTE | 2019-04-22 10:04 | NUR ---
Pain Clinic Assessment: 1. History of Osteoarthritis: Not Applicable History of Rheumatoid Arthritis: Not Applicable 2. Height: 6 ft. 0 in. 182.9 cm. Weight: 274.8 lb. oz. 124.649 kg. Patient's BMI: 37.3 3. Vital Signs: BP: 146/100 Pulse: 73 Resp: 20 Temp: 02 Sat: 100 ECG Mon: 4. Pain Intensity: 5 5. Fall Risk: Dizziness: N Needs help standing or walking: N Fallen in the last 3 months: N Fall risk comments: 6. Patient on Blood Thinner: None 7. History of Hypertension: Y 8. Opioid Therapy greater than 6 weeks: Y Opiate Contract Signed: 03/26/18 9. Risk Assessment Tool Provided: 1-LOW RISK 10. Functional Assessment Tool: / 11. Recreational Drug Use: Never Drug Type: Tobacco Use: Never Smoker Tobacco Type: Amount or Packs/day: How Many Years: Alcohol Use: No Frequency: Quant:
--- NOTE | 2019-04-23 07:11 | HPC ---
[facility] [address] [place] [address] PAIN MANAGEMENT CONSULTATION Name: STEVE LOVE Room #: REG [facility].#: [id number] Admission: 04/22/19 ������������������ Attend Phys: Albertina Womack Discharge: ������������������ Date of : 53 Report #: [id number] THIS REPORT FOR: //name// CC: Albertina HARRINGTNO Physician staff DATE OF SERVICE: 04/22/2019 CHIEF COMPLAINT: Chronic low back pain. HISTORY OF PRESENT ILLNESS: This is a very pleasant 63-year-old gentleman who returns to the pain clinic for medication management that he uses to treat his chronic axial back pain. He uses Oxycodone 10/325 about 4 times a day. He tells me that his pain score is 5/10 today, which is an average pain score. He said his pain is a constant, stabbing, sharp pain, worse with bending over and activity, better with rest and sitting or his medications. He has no problems with constipation. His transplant medications, does cause of diarrhea and his narcotics even him out, he says. The patient tells me that he is having some issues with his kidney function. His levels continue to rise. His kidney function he tells me is about 22% currently. They are adjusting his blood pressure medicines to try and help save his kidneys. He tells me that he may have to go back on dialysis, but currently they are still monitoring him. ALLERGIES: AMLODIPINE AND NONSTEROIDALS. CURRENT MEDICATIONS: Percocet 10/325, buspirone 10 mg, Imuran 30 mg daily, Zestril 10 mg daily, potassium 10 mEq daily, temazepam 30 mg daily, Senokot as needed, Crestor 20 mg daily, Protonix 40 mg daily, prednisone 5 mg daily, MiraLax as needed, Neoral 25 mg b.i.d., Lasix 40 mg daily, hydralazine 100 mg t.i.d., gabapentin 100 mg t.i.d., Cardura 8 mg at bedtime, carvedilol 25 mg b.i.d., calcitriol 0.25 mcg Sunday, Sunday, Sunday and allopurinol 300 mg daily. PQRS: 1. He denies any history of osteoarthritis or rheumatoid arthritis. 2. Height is 6 feet, weight is 274, BMI is 37. 3. Vital signs: Blood signs 146/100, pulse is 73, respirations 20, oxygen sat of 100, pain score is 5/10. 4. Fall risk: Denies dizziness. He does not need help walking or standing, has not fallen in the last 3 months. 5. The patient is not on any blood thinners, but he does take medicines for hypertension. 6. Opioid therapy is greater than 6 weeks; therefore, an opioid signed contract [address] [address] PAIN MANAGEMENT CONSULTATION Name: STEVE LOVE Room #: REG JUDY Cui#: [id number] Admission: 04/22/19 ������������������ Attend Phys: Albertina Womack Discharge: ������������������ Date of : 53 Report #: [id number] is on the chart. 7. His risk assessment tool is low. Functional assessment is 55-70. 8. Recreational drug use, he denies. He is not a smoker and does not drink alcohol. We did check the prescription monitoring system. The patient is filling appropriately from her medications and we did check a recent drug screen, which is positive for the medications that we prescribe for him. No aberrant behavior noted. PHYSICAL EXAMINATION: GENERAL: This is a well-developed, well-nourished, well-hydrated 63-year-old gentleman who appears his stated age, slightly obese. Placing his pain score today at 5/10. He is a good historian. HEENT: Normocephalic, atraumatic. Pupils equal, round and reactive to light. Mucous membranes are moist. EXTREMITIES: No clubbing, no cyanosis, no edema. MUSCULOSKELETAL: He has tenderness across his lumbar region and his lower back. He walks with a slightly antalgic gait. He moves from sitting to standing using the armrest. His lower extremity strength judged to be 5/5 within all major muscle groups: ASSESSMENT: 1. Lumbosacral spondylosis without radicular symptoms. 2. Morbid obesity. 3. Facet arthroscopy of the lumbar spine. 4. Lumbar degeneration. 5. Complex medical management under terms of written opioid agreement. 6. History of heart transplant. 7. Renal failure. We reviewed the fact that opiate medications are being used to provide analgesia adequate to support activities of daily living, not attempting to achieve a specific pain score on the 0-10 Visual Analog Scale. The current opiate medications are providing sufficient analgesia to allow the patient to participate in activities of daily living. The patient is not exhibiting any aberrant behavior suggestive of drug diversion. The patient is not having any adverse reactions to medications. The patient is not suffering from daytime somnolence or mental acuity changes. The patient is managing opiate-induced constipation with appropriate [id number]-[id number] agents and dietary considerations. The patient was counseled on concern for caution with operating a motor vehicle while using opiate medications. A physical exam was performed and the patient's functional status was evaluated. All patients with back pain were advised against the bed rest greater than 4 days and were advised to return to normal activities. Pain score assessment was [address] [place] [address] PAIN MANAGEMENT CONSULTATION Name: STEVE LOVE Room #: REG [facility]#: [id number] Admission: 04/22/19 ������������������ Attend Phys: Albertina STACY Francisluciano Discharge: ������������������ Date of : 53 Report #: [id number] noted and the treatment plan was reviewed with the patient. All current medications, both prescribed and OTC were reviewed and reconciled on the electronic medical record. Tobacco screening was accomplished and smoking cessation was advised when indicated. BMI was noted and diet/exercise modification was recommended for all patients following outside normal parameters. I reviewed with the patient today their responsibilities to safeguard prescription medications, reviewed their responsibility to utilize medications only as prescribed by the physician. They are to seek and receive pain medications only from 1 physician group ( [facility]). They are to use 1 pharmacy and keep the clinic informed if they change pharmacies. Their responsibilities include making followup visits in a timely fashion and to avoid abrupt discontinuation of medication usage. Their responsibilities further include bringing their medications (bottles from the pharmacy with residual pills) to the visit for possible confirmation of pill counts and the patient understands it is their responsibility to submit to random drug screens to ensure both that the medications prescribed are present, and that no other controlled substances are present. All prescriptions provided today were generated electronically. PLAN: 1. We discussed treatment options with the patient today. The patient is doing quite well on his current medication regimen. His Percocet 10/325, #120, scripts given for today and [address] the patient at 60 morphine mEq, which is under the 90 of the CDC guidelines; therefore, according to our clinic guidelines, he is seen every 2 months. 2. We did talk about his renal function briefly. The patient tells me that he may need to go on dialysis again or put on the transplant list, but they are adjusting his medications and he is hopeful to avoid those and he understands that he has been dealing with these issues for quite some time and he had been on peritoneal dialysis previously before his heart transplant. Dr. Colt Chery did come and see the patient as well today and also collaborated on care. The patient will return in 2 months for a visit. ��������������������������������������������� <ELECTRONICALLY SIGNED> ���������������������������������������� By: Albertina Womack ��������������������������������������������� 04/23/19 0711 1107 2035 Albertina Womack /nt
== END ==
LOC: PAIN 06:40
DX: M47.27 Other spondylosis with radiculopathy, lumbosacral region (principal); M51.16 Intervertebral disc disorders with radiculopathy, lumbar region; E66.01 Morbid (severe) obesity due to excess calories; Z79.891 Long term (current) use of opiate analgesic; Z94.1 Heart transplant status; Z68.37 Body mass index [BMI] 37.0-37.9, adult

== ENCOUNTER → 2019-06-17 | Outpatient (CLI) | payer OTHER ==
[~2019-06-17] VITALS: Ht 182.9 cm; Wt 124.7 kg
[2019-06-17 10:43] VITALS: BP 139/94
--- NOTE | 2019-06-17 10:49 | NUR ---
Pain Clinic Assessment: 1. History of Osteoarthritis: Not Applicable History of Rheumatoid Arthritis: Not Applicable 2. Height: 6 ft. 0 in. 182.9 cm. Weight: 275.0 lb. oz. 124.740 kg. Patient's BMI: 37.3 3. Vital Signs: BP: 139/94 Pulse: 81 Resp: 16 Temp: 02 Sat: 98 ECG Mon: 4. Pain Intensity: 7 5. Fall Risk: Dizziness: N Needs help standing or walking: N Fallen in the last 3 months: N Fall risk comments: 6. Patient on Blood Thinner: None 7. History of Hypertension: Y 8. Opioid Therapy greater than 6 weeks: Y Opiate Contract Signed: 03/26/18 9. Risk Assessment Tool Provided: 1-LOW RISK 10. Functional Assessment Tool: / 11. Recreational Drug Use: Never Drug Type: Tobacco Use: Never Smoker Tobacco Type: Amount or Packs/day: How Many Years: Alcohol Use: No Frequency: Quant:
--- NOTE | 2019-06-18 08:59 | HPC ---
[facility] [address] [place] [address] PAIN MANAGEMENT CONSULTATION Name: STEVE LOVE Room #: REG [facility].#: [id number] Admission: 06/17/19 ������������������ Attend Phys: Albertina Womack Discharge: ������������������ Date of : 53 Report #: [id number] THIS REPORT FOR: //name// CC: [facility] DATE OF SERVICE: 06/17/2019 CHIEF COMPLAINT: Chronic low back pain. HISTORY OF PRESENT ILLNESS: This is a very pleasant 63-year-old gentleman who returns to the pain clinic today for refill of his medications that he uses to help treat his ongoing axial back pain. The patient reports a pain score of 7/10 today. It is slightly elevated in the morning and usually decreases as the day progresses. He tells me as if he is active, he can have increased pain, but also some activity does make his pain feel better as well as resting and sitting. He denies any problems with constipation from the narcotics. He tells me that with his transplant medications and then narcotics, he stays very regular. The patient would like a refill of his medications today. ALLERGIES: AMLODIPINE and NONSTEROIDAL ANTI-INFLAMMATORIES. CURRENT MEDICATIONS: Oxycodone 10/325 up to 4 times a day p.r.n., buspirone 10 mg b.i.d., Imdur 30 mg daily, potassium, venlafaxine, temazepam, Senokot, Crestor, Protonix, prednisone, Neoral, Lasix, hydralazine, gabapentin, Sandra, Cardura, Coreg, and allopurinol. PQRS: 1. He denies a history of osteoarthritis or rheumatoid arthritis. 2. Height is 6 feet, weight is 275, BMI is 37. 3. Vital signs; blood pressure 139/94, pulse is 81, respirations 16, and oxygen sat is 98. 4. Pain score 7/10. 5. Denies dizziness, does not need help walking or standing, has not fallen in the last 3 months. 6. The patient is not on any blood thinners. He does take medicine for hypertension. 7. Opioid therapy is greater than 6 weeks; therefore, an opioid signed contract is on the chart. Risk assessment tool is low. Functional assessment is 55/70. 8. Recreational drug use, he denies. He is not a smoker and does not drink alcohol. According to the prescription monitoring system, he is filling all medications appropriately in a timely fashion. There is some miss information from the pharmacy, they have entered the patient will talk to [place] [address] PAIN MANAGEMENT CONSULTATION Name: STEVE LOVE Room #: REG JUDY Cui#: [id number] Admission: 06/17/19 ������������������ Attend Phys: Albertina Womack Discharge: ������������������ Date of : 53 Report #: [id number] correct doctor for filling his prescriptions. We did check a recent drug screen that was appropriate for the medications we prescribed. PHYSICAL EXAMINATION: GENERAL: This is a well-developed, well-nourished, well-hydrated 63-year-old gentleman who appears his stated age, slightly obese. He is placing his current pain score at 7/10 currently. HEENT: Normocephalic, atraumatic. Extraocular eye muscles are intact. Mucous membranes are moist. EXTREMITIES: No clubbing, no cyanosis, no edema. MUSCULOSKELETAL: Tenderness across his lumbar region. Walks with a slightly antalgic gait. He moves from sitting to standing without any difficulty. His lower extremity strength judged to be 5/5 in all major muscle groups. ASSESSMENT: 1. Lumbosacral spondylosis without radicular symptoms. 2. Morbid obesity. 3. Facet arthroscopy of the lumbar spine. 4. Lumbar degeneration. 5. History of heart transplant. 6. Renal failure. 7. Complex medical management under terms of written opioid agreement. PLAN: 1. We discussed treatment options with the patient today. The patient is doing quite well on his current pain regimen. Scripts given today for oxycodone 10/325, #120 for release today and 4 week. This places the patient at 60 morphine milliequivalents per day according to the CDC guidelines. The patient denies any problems with constipation or daytime sleepiness. He feels like he is able to function quite well on this current medications. 2. Dr. Colt Chery did see the patient and collaborated care today. The patient will return in 2 months for medications. ��������������������������������������������� <ELECTRONICALLY SIGNED> ���������������������������������������� By: Albertina Womack ��������������������������������������������� 06/18/19 0859 1149 0045 Albertina Womack /marjan
== END ==
LOC: PAIN 06:53
DX: M47.817 Spondylosis without myelopathy or radiculopathy, lumbosacral region (principal); M12.88 Other specific arthropathies, not elsewhere classified, other specified site; M51.36 Other intervertebral disc degeneration, lumbar region; E66.01 Morbid (severe) obesity due to excess calories; N19 Unspecified kidney failure; Z94.1 Heart transplant status; Z79.899 Other long term (current) drug therapy; Z79.891 Long term (current) use of opiate analgesic; Z88.8 Allergy status to other drugs, medicaments and biological substances

== ENCOUNTER → 2019-08-13 | Outpatient (CLI) | payer OTHER ==
[~2019-08-13] VITALS: Ht 182.9 cm; Wt 123.7 kg
[~2019-08-13] MED LIST changes: +IMDUR 60 MG TAB60 M1 PO
[2019-08-13 10:43] VITALS: BP 107/70
--- NOTE | 2019-08-13 10:48 | NUR ---
Pain Clinic Assessment: 1. History of Osteoarthritis: Not Applicable History of Rheumatoid Arthritis: Not Applicable 2. Height: 6 ft. 0 in. 182.9 cm. Weight: 272.6 lb. oz. 123.651 kg. Patient's BMI: 37.0 3. Vital Signs: BP: 107/70 Pulse: 82 Resp: 16 Temp: 02 Sat: 93 ECG Mon: 4. Pain Intensity: 3-4 5. Fall Risk: Dizziness: N Needs help standing or walking: N Fallen in the last 3 months: N Fall risk comments: 6. Patient on Blood Thinner: None 7. History of Hypertension: Y 8. Opioid Therapy greater than 6 weeks: Y Opiate Contract Signed: 03/26/18 9. Risk Assessment Tool Provided: 1-LOW RISKY 10. Functional Assessment Tool: 11. Recreational Drug Use: Never Drug Type: Tobacco Use: Never Smoker Tobacco Type: Amount or Packs/day: How Many Years: Alcohol Use: No Frequency: Quant:
--- NOTE | 2019-08-14 11:21 | HPC ---
[facility] [address] [place] [address] PAIN MANAGEMENT CONSULTATION Name: STEVE LOVE Room #: REG [facility].#: [id number] Admission: 08/13/19 Attend Phys: Albertina Womack Discharge: Date of : 53 Report #: [id number] THIS REPORT FOR: //name// CC: Albertina HARRINGTON Physician staff DATE OF SERVICE: 08/13/2019 CHIEF COMPLAINT: Chronic low back pain. HISTORY OF PRESENT ILLNESS: This is a very pleasant 64-year-old gentleman who returns to the pain clinic today for refill of his medications that he uses to help treat his ongoing low back pain. He reports a pain score today of 3-4. It is worse when he is lifting or certain movements and activity, but better with resting and his medications. He denies any problems with constipation as long as he takes some khvw-hyb-zmwadel medications and increases his fiber. He does not have any daytime sleepiness. The patient does report that he had a cyst excised a few weeks ago in his left buttock that recently became infected. Yesterday, he had to have that excised and packed fairly deeply. I did not visualize this today, but he tells me that he has had some increased pain when he sits in certain positions as well. ALLERGIES: AMLODIPINE AND NONSTEROIDAL ANTI-INFLAMMATORIES. MEDICATIONS: Imdur 60 mg daily, oxycodone/acetaminophen 10/325 p.r.n., buspirone 10 mg b.i.d., potassium, venlafaxine b.i.d., temazepam 30 mg at bedtime, senna, Crestor, Protonix, prednisone, MiraLax, cyclosporine, Lasix, hydralazine, gabapentin, Cardura PQRS: 1. He denies any history of osteoarthritis or rheumatoid arthritis. 2. Height is 6 feet, weight is 272, BMI is 37. 3. Vital signs: Blood pressure 107/70, pulse 82, respirations 16, oxygen sat is 93. 4. Pain score is 3-4. 5. Denies dizziness, does not need help walking or standing, has not fallen in the last 3 months. 6. The patient is not on any blood thinners, but does take medicine for hypertension. 7. Opioid therapy is greater than 6 weeks; therefore, an opiate signed contract is on the chart. Risk assessment tool is low. Functional assessment is low 8. Recreational drug use, he denies. He is nonsmoker [place] [address] PAIN MANAGEMENT CONSULTATION Name: STEVE LOVE Room #: REG CLI [facility]#: [id number] Admission: 08/13/19 Attend Phys: Albertina Womack Discharge: Date of : 53 Report #: [id number] According to the prescription monitoring system, he is filling in a timely fashion. There is a recent drug screen on the chart as well that is appropriate for his medications. PHYSICAL EXAMINATION: GENERAL: This is a well-developed, well-nourished, well-hydrated 64-year-old gentleman who appears his stated age, slightly obese, placing his current pain score 3-4 today. HEENT: Normocephalic, atraumatic. Extraocular eye muscles are intact. Mucous membranes are moist. EXTREMITIES: No clubbing, no cyanosis, no edema. MUSCULOSKELETAL: Walks with a slightly antalgic gait. Moves from sitting to standing without any difficulty, though slowly. His lower extremity strength judged to be 5/5 in all major muscle groups. He does have a recently excised cyst in his left buttock that was not visualized today. He has tenderness across his lumbar region. Seated straight leg raising is negative. ASSESSMENT: 1. Lumbosacral spondylosis without radicular symptoms. 2. Morbid obesity. 3. Facet arthroscopy of the lumbar spine. 4. Lumbar degeneration. 5. History of heart transplant. 6. Renal failure. 7. Complex medical management under terms of written opioid agreement. We reviewed the fact that opiate medications are being used to provide analgesia adequate to support activities of daily living, not attempting to achieve a specific pain score on the 0-10 Visual Analog Scale. The current opiate medications are providing sufficient analgesia to allow the patient to participate in activities of daily living. The patient is not exhibiting any aberrant behavior suggestive of drug diversion. The patient is not having any adverse reactions to medications. The patient is not suffering from daytime somnolence or mental acuity changes. The patient is managing opiate-induced constipation with appropriate qdxh-jyl-latwxqw agents and dietary considerations. The patient was counseled on concern for caution with operating a motor vehicle while using opiate medications. A physical exam was performed and the patient's functional status was evaluated. All patients with back pain were advised against the bed rest greater than 4 days and were advised to return to normal activities. Pain score assessment was noted and the treatment plan was reviewed with the patient. All current medications, both prescribed and OTC were reviewed and reconciled on the electronic medical record. Tobacco screening was accomplished and smoking cessation was advised when indicated. BMI was noted and diet/exercise [address] [address] PAIN MANAGEMENT CONSULTATION Name: STEVE LOVE Room #: LORI Cui#: [id number] Admission: 08/13/19 Attend Phys: Albertina Womack Discharge: Date of : 53 Report #: [id number] modification was recommended for all patients following outside normal parameters. I reviewed with the patient today their responsibilities to safeguard prescription medications, reviewed their responsibility to utilize medications only as prescribed by the physician. They are to seek and receive pain medications only from 1 physician group ( [facility]). They are to use 1 pharmacy and keep the clinic informed if they change pharmacies. Their responsibilities include making followup visits in a timely fashion and to avoid abrupt discontinuation of medication usage. Their responsibilities further include bringing their medications (bottles from the pharmacy with residual pills) to the visit for possible confirmation of pill counts and the patient understands it is their responsibility to submit to random drug screens to ensure both that the medications prescribed are present, and that no other controlled substances are present. All prescriptions provided today were generated electronically. PLAN: We discussed treatment options with the patient today. The patient is doing well on his Percocet 10/325, #120. Scripts given today and 4-week release. This places him at 60 morphine mEq well below the CDC guidelines. The patient will return in 2 months for medication refill. Care given today under collaboration with Dr. Colt Chery. <ELECTRONICALLY SIGNED> By: Albertina Womack 08/14/19 1121 [id number] Albertina Womack /marjan
== END ==
LOC: PAIN 07:03
DX: Z76.0 Encounter for issue of repeat prescription (principal); M47.817 Spondylosis without myelopathy or radiculopathy, lumbosacral region; G89.29 Other chronic pain; E66.01 Morbid (severe) obesity due to excess calories; M51.36 Other intervertebral disc degeneration, lumbar region; Z79.891 Long term (current) use of opiate analgesic; Z79.899 Other long term (current) drug therapy

== ENCOUNTER → 2019-10-08 | Outpatient (CLI) | payer OTHER ==
[~2019-10-08] VITALS: Ht 182.9 cm; Wt 128.6 kg
[2019-10-08 10:16] VITALS: BP 133/94
--- NOTE | 2019-10-08 10:29 | NUR ---
Pain Clinic Assessment: 1. History of Osteoarthritis: BACK History of Rheumatoid Arthritis: Not Applicable 2. Height: 6 ft. 0 in. 182.9 cm. Weight: 283.6 lb. oz. 128.640 kg. Patient's BMI: 38.5 3. Vital Signs: BP: 133/94 Pulse: 79 Resp: 16 Temp: 02 Sat: 96 ECG Mon: 4. Pain Intensity: 2 5. Fall Risk: Dizziness: N Needs help standing or walking: N Fallen in the last 3 months: N Fall risk comments: 6. Patient on Blood Thinner: None 7. History of Hypertension: Y 8. Opioid Therapy greater than 6 weeks: Y Opiate Contract Signed: 03/26/18 9. Risk Assessment Tool Provided: LOW RISK 11/21 10. Functional Assessment Tool: 11. Recreational Drug Use: Never Drug Type: Tobacco Use: Never Smoker Tobacco Type: Amount or Packs/day: How Many Years: Alcohol Use: No Frequency: Quant:
--- NOTE | 2019-10-09 09:53 | HPC ---
[facility] [address] [place] [address] PAIN MANAGEMENT CONSULTATION Name: STEVE LOVE Room #: REG [facility].#: [id number] Admission: 10/08/19 Attend Phys: Albertina Womack Discharge: Date of : 53 Report #: [id number] THIS REPORT FOR: //name// CC: Albertina Uribe DO Physician staff DATE OF SERVICE: 10/08/2019 CHIEF COMPLAINT: Chronic low back pain. HISTORY OF PRESENT ILLNESS: This is a very pleasant 64-year-old gentleman who returns to the pain clinic today for refill of his medication that he uses to help treat his ongoing chronic low back pain. He feels that the medications are very beneficial in helping control his pain, rating at a 2/10 today. Also, he finds being active and moving, beneficial in keeping him less stiff. He reports that if he sits too long, it is aggravated as well as lifting. He denies any problems with constipation as long as he watches his diet and takes some stool softener. He finds this medicine keeps him at very well controlled pain level and would like refills today. ALLERGIES: AMLODIPINE, NONSTEROIDAL ANTI-INFLAMMATORIES and CIPRO. CURRENT LIST OF MEDICATIONS: Imdur, Percocet 10/325, buspirone 10 mg b.i.d., potassium 10 mEq daily, venlafaxine 75 mg b.i.d., temazepam 30 mg at bedtime, Senokot, Crestor 20 mg daily, Protonix 40 mg daily, prednisone 5 mg daily, MiraLax, Neoral 25 mg capsules b.i.d., Lasix 40 mg daily, hydralazine 100 mg q.i.d., gabapentin 200 mg t.i.d., Cardura 8 mg at bedtime, carvedilol 25 mg b.i.d., and allopurinol 300 mg daily. PQRS: 1. He has a history of osteoarthritic changes in his lumbar spine. Denies any rheumatoid arthritis. 2. Height is 6 feet, weight is 283, BMI is 38. 3. Vital signs 133/94, pulse is 79, respirations 16, oxygen sat is 96. 4. Pain score is 2/10. 5. Denies dizziness. Does not need help walking or standing, has not fallen in the last 3 months. 6. The patient is not on any blood thinners, but does take medicine for hypertension. 7. Opioid therapy is greater than 6 weeks; therefore, an opioid signed contract is on the chart. Risk assessment tool is low. Functional assessment is 16/70. 8. Recreational drug use, he denies. He is not a smoker and does not drink alcohol. [address] [address] PAIN MANAGEMENT CONSULTATION Name: STEVE LOVE Room #: REG CLI See#: [id number] Admission: 10/08/19 Attend Phys: Albertina Womack Discharge: Date of : 53 Report #: [id number] According to the prescription monitoring system, the patient is filling appropriately for his medications in a timely fashion. There is a recent drug screen on the chart that is appropriate as well. He tells me he does safeguard his meds at all times. PHYSICAL EXAMINATION: GENERAL: This is a well-developed, well-nourished, well-hydrated, slightly obese 64-year-old gentleman who appears his stated age, placing his current pain score at 2/10 today. HEENT: Normocephalic, atraumatic. Extraocular eye muscles are intact. Mucous membranes are moist. EXTREMITIES: No clubbing, no cyanosis, 1+ edema in his lower extremities with compression stockings on. MUSCULOSKELETAL: He moves from sitting to standing very slowly. His lower extremity strength judged to be 5/5 in all major muscle groups. He walks with an antalgic gait. He has a wound on his left buttocks that was not visualized today from a previous excised cyst. He has tenderness in his lumbosacral region of his back. ASSESSMENT: 1. Lumbosacral spondylosis without radicular symptoms. 2. Morbid obesity. 3. Facet arthroscopy on the lumbar spine. 4. Lumbar degeneration. 5. History of heart transplant. 6. Renal failure. 7. Slow healing wound on his left buttock, going to wound clinic therapy. 8. Complex medical management under terms of written opioid agreement. We reviewed the fact that opiate medications are being used to provide analgesia adequate to support activities of daily living, not attempting to achieve a specific pain score on the 0-10 Visual Analog Scale. The current opiate medications are providing sufficient analgesia to allow the patient to participate in activities of daily living. The patient is not exhibiting any aberrant behavior suggestive of drug diversion. The patient is not having any adverse reactions to medications. The patient is not suffering from daytime somnolence or mental acuity changes. The patient is managing opiate-induced constipation with appropriate wxtk-jlc-wgtgzlv agents and dietary considerations. The patient was counseled on concern for caution with operating a motor vehicle while using opiate medications. A physical exam was performed and the patient's functional status was evaluated. All patients with back pain were advised against the bed rest greater than 4 days and were advised to return to normal activities. Pain score assessment was noted and the treatment plan was reviewed with the patient. All current [facility] [address] [place] [address] PAIN MANAGEMENT CONSULTATION Name: STEVE LOVE Room #: REG [facility]..#: [id number] Admission: 10/08/19 Attend Phys: Albertina Womack Discharge: Date of : 53 Report #: [id number] medications, both prescribed and OTC were reviewed and reconciled on the electronic medical record. Tobacco screening was accomplished and smoking cessation was advised when indicated. BMI was noted and diet/exercise modification was recommended for all patients following outside normal parameters. I reviewed with the patient today their responsibilities to safeguard prescription medications, reviewed their responsibility to utilize medications only as prescribed by the physician. They are to seek and receive pain medications only from 1 physician group ( [facility]). They are to use 1 pharmacy and keep the clinic informed if they change pharmacies. Their responsibilities include making followup visits in a timely fashion and to avoid abrupt discontinuation of medication usage. Their responsibilities further include bringing their medications (bottles from the pharmacy with residual pills) to the visit for possible confirmation of pill counts and the patient understands it is their responsibility to submit to random drug screens to ensure both that the medications prescribed are present, and that no other controlled substances are present. All prescriptions provided today were generated electronically. PLAN: 1. We discussed treatment options with the patient today. The patient is doing quite well on his current Percocet . This places him at 60 morphine mEq a day. Therefore, he is seen every 2 months in our clinic. We will e-scribe his prescriptions today and for 4 weeks. 2. The patient will start going to the wound clinic for his ongoing wound from a cyst removal. The patient states that it is slowly healing and continues to be on antibiotics. 3. The patient is seen in collaboration with Dr. Colt Chery. The patient will call for a followup in 2 months. <ELECTRONICALLY SIGNED> By: Albertina Womack 10/09/19 0953 [id number] Albertina Womack /nt
== END ==
LOC: PAIN 07:04
DX: M47.817 Spondylosis without myelopathy or radiculopathy, lumbosacral region (principal); E66.9 Obesity, unspecified; N17.9 Acute kidney failure, unspecified; Z79.891 Long term (current) use of opiate analgesic; Z94.1 Heart transplant status

== ENCOUNTER → 2019-12-03 | Outpatient (CLI) | payer OTHER ==
[~2019-12-03] VITALS: Ht 182.9 cm; Wt 130.2 kg
[2019-12-03 11:01] VITALS: BP 126/79
--- NOTE | 2019-12-03 11:15 | NUR ---
Pain Clinic Assessment: 1. History of Osteoarthritis: BACK BOTH KNEES History of Rheumatoid Arthritis: Not Applicable 2. Height: 6 ft. 0 in. 182.9 cm. Weight: 287.0 lb. oz. 130.183 kg. Patient's BMI: 38.9 3. Vital Signs: BP: 126/79 Pulse: 74 Resp: 18 Temp: 02 Sat: 96 ECG Mon: 4. Pain Intensity: 2-3 5. Fall Risk: Dizziness: N Needs help standing or walking: Y Fallen in the last 3 months: N Fall risk comments: 6. Patient on Blood Thinner: None 7. History of Hypertension: Y 8. Opioid Therapy greater than 6 weeks: Y Opiate Contract Signed: 03/26/18 9. Risk Assessment Tool Provided: LOW RISK 11/21 10. Functional Assessment Tool: 11. Recreational Drug Use: Never Drug Type: Tobacco Use: Never Smoker Tobacco Type: Amount or Packs/day: How Many Years: Alcohol Use: No Frequency: Quant:
--- NOTE | 2019-12-04 08:35 | HPC ---
[facility] [address] [place] [address] PAIN MANAGEMENT CONSULTATION Name: STEVE LOVE Room #: REG [facility] See#: [id number] Admission: 12/03/19 Attend Phys: Albertina Womack Discharge: Date of : 53 Report #: [id number] THIS REPORT FOR: //name// CC: Albertina HARRINGTON Physician staff DATE OF SERVICE: 12/03/2019 CHIEF COMPLAINT: Chronic low back pain. HISTORY OF PRESENT ILLNESS: This is a very pleasant 64-year-old gentleman who returns to the pain clinic today for refill of his medication that he uses to help treat his ongoing low back pain. He feels that his pain is a 2/10 today, which is very well controlled with his oxycodone. He does report that he had had some left knee pain that became problematic when he started some Cipro medication. He was needing for his wound infection. He reports that after that medication was stopped his knee pain did dissipate. He has been using some diclofenac gel on that as needed as well and he finds that beneficial as well as occasional Tylenol Arthritis. The patient reports his pain again is in his low back, worse with activity and lifting and increased movements, but he feels that his medication as well as resting are very beneficial. He is needing refills of this medication today. He also reports that his wound that he had on his left buttock has been healing and he is using only A and D ointment per the wound doctor's advice currently on this area. ALLERGIES: AMLODIPINE, NONSTEROIDAL ANTI-INFLAMMATORIES AND CIPRO. CURRENT LIST OF MEDICATIONS: Oxycodone 10/325 p.r.n., Imdur, buspirone, potassium, venlafaxine, temazepam, Senokot, Crestor, Protonix, prednisone, MiraLax, Neoral, Lasix, hydralazine, gabapentin, Cardura, Coreg, and allopurinol. PQRS: 1. He has a history of osteoarthritic changes in his lumbar spine and bilateral knees. Denies any rheumatoid arthritis. 2. Height is 6 feet, weight is 287, BMI is 38. 3. Vital signs, blood pressure 126/79, pulse is 74, respirations 18, oxygen sat is 96. 4. Pain score is 2-3. 5. Denies dizziness. Does need help walking, uses a cane for balance. Has not fallen in the last 3 months. 6. The patient is not on any blood thinners, but does take medicine for hypertension. [address] [address] PAIN MANAGEMENT CONSULTATION Name: STEVE LOVE Room #: REG [facility].#: [id number] Admission: 12/03/19 Attend Phys: Albertina Womack Discharge: Date of : 53 Report #: [id number] 7. Opiate therapy is greater than 6 weeks; therefore, an opioid signed contract is on the chart. Risk assessment tool is low. Functional assessment is . 8. Recreational drug use, he denies. He is not a smoker and does not drink alcohol. According to the prescription monitoring system, the patient is filling appropriately for his medications in a timely fashion. According to the CDC guidelines, his morphine mEq per day is 60 MMEs. PHYSICAL EXAMINATION: GENERAL: This is a well-developed, well-nourished 64-year-old gentleman who is slightly obese, appearing his stated age, placing his current pain score 2/10. HEENT: Normocephalic, atraumatic. Extraocular eye muscles are intact. EXTREMITIES: No clubbing, no cyanosis. Does have 1+ edema in his lower extremities, bilateral. He does have compression knee high stockings on today. MUSCULOSKELETAL: He walks with a slightly antalgic gait. He has tenderness in his lumbosacral region of his back. He moves from sitting to standing with aid of the armrests and moves very slowly. His lower extremity strength judged to be 5/5 with all major muscle groups. ASSESSMENT: 1. Lumbosacral spondylosis without radicular symptoms. 2. Morbid obesity. 3. Facet arthroscopy of the lumbar spine. 4. Lumbar degeneration. 5. History of heart transplant, on immunosuppressive medication therapy. 6. Renal failure. 7. Complex medical management under terms of written opioid agreement. We reviewed the fact that opiate medications are being used to provide analgesia adequate to support activities of daily living, not attempting to achieve a specific pain score on the 0-10 Visual Analog Scale. The current opiate medications are providing sufficient analgesia to allow the patient to participate in activities of daily living. The patient is not exhibiting any aberrant behavior suggestive of drug diversion. The patient is not having any adverse reactions to medications. The patient is not suffering from daytime somnolence or mental acuity changes. The patient is managing opiate-induced constipation with appropriate uewj-mak-xdpmtve agents and dietary considerations. The patient was counseled on concern for caution with operating a motor vehicle while using opiate medications. PLAN: 1. We discussed treatment options with the patient today. We will refill his oxycodone 10, #120. These will be sent electronically by Dr. Colt Chery for 2 months. 2. The patient will follow up with Dr. Colt Chery in his next appointment. [address] [address] PAIN MANAGEMENT CONSULTATION Name: STEVE LOVE Room #: REG [facility]#: [id number] Admission: 12/03/19 Attend Phys: Albertina Womack Discharge: Date of : 53 Report #: [id number] 3. The patient reports that his son has been extremely ill and is in the hospital for sepsis as well as now receiving hemodialysis and wound care. I encouraged the patient to use extreme handwashing and wear gowns and masks when he is with his son who also has C. diff, because this patient is immunosuppressed, I do not want him to contract in any of the illnesses in the hospital. I encouraged him to make sure he is having plenty of rest and drinking plenty of fluids to stay healthy. The patient verbalizes understanding. <ELECTRONICALLY SIGNED> By: Albertina Womack 12/04/19 0835 [id number] Albertina Womack /marjan
== END ==
LOC: PAIN 06:53
DX: M51.36 Other intervertebral disc degeneration, lumbar region (principal); E66.09 Other obesity due to excess calories; M47.817 Spondylosis without myelopathy or radiculopathy, lumbosacral region; Z79.891 Long term (current) use of opiate analgesic; Z94.1 Heart transplant status